=== PATIENT | female | born 1980 | race Caucasian/White ===

== ENCOUNTER → 2016-10-19 | Outpatient (CLI) | payer MEDICARE, OTHER ==
[~2016-10-19] MED LIST: ALPRAZOLAM0.5 MG PO; CRESTOR20 MG PO; GABAPENTIN600 MG PO; PROTONIX40 MG PO; VENTOLIN/PROVE0.5 ML INH; ZANTAC300 MG PO; ZOFRAN4 MG PO
== END ==
LOC: RAD 07:59
DX: K21.9 Gastro-esophageal reflux disease without esophagitis (principal); K44.9 Diaphragmatic hernia without obstruction or gangrene; Z88.6 Allergy status to analgesic agent; Z88.8 Allergy status to other drugs, medicaments and biological substances
CPT/HCPCS: 74220

== ENCOUNTER 2021-03-02 11:52 | Emergency (ER) | payer OTHER ==
[~2021-03-02 11:52] MED LIST changes: +COLACE100 MG PO; +NEURONTIN600 MG PO; +NORCO 5-325 TA1 EACH PO; +NORCO 7.5-3251 EACH PO; +NORETHINDRONE AC5 MG PO; +OMEPRAZOLE20 M1 PO; +PRILOSEC OTC20 MG PO; +XANAX0.25 MG PO; +ZOFRAN8 MG PO
== END 2021-03-02 14:21 | disposition home or self-care (01) ==
LOC: ER1 11:52
DX: S80.01XA Contusion of right knee, initial encounter (principal); E11.9 Type 2 diabetes mellitus without complications; V49.40XA Driver injured in collision with unspecified motor vehicles in traffic accident, initial encounter; Y92.410 Unspecified street and highway as the place of occurrence of the external cause
CPT/HCPCS: 73564; 99283

== ENCOUNTER → 2021-03-15 | Outpatient (CLI) | payer MEDICARE, OTHER | LOC: KOH-I 09:51 | DX: S20.211A Contusion of right front wall of thorax, initial encounter (principal); R07.81 Pleurodynia | CPT/HCPCS: 71046 ==

== ENCOUNTER → 2021-07-19 | Outpatient (CLI) | payer MEDICARE, OTHER | LOC: KOH-I 09:01 | DX: M25.521 Pain in right elbow (principal) | CPT/HCPCS: 73080 ==

== ENCOUNTER → 2021-11-19 | Outpatient (CLI) | payer MEDICARE, OTHER | LOC: CT 11-18 08:00 | DX: M54.50 Low back pain, unspecified (principal); R31.9 Hematuria, unspecified; K76.0 Fatty (change of) liver, not elsewhere classified; N63.10 Unspecified lump in the right breast, unspecified quadrant; M79.604 Pain in right leg; M79.605 Pain in left leg; M79.671 Pain in right foot; M79.672 Pain in left foot; R20.2 Paresthesia of skin; Z98.890 Other specified postprocedural states | CPT/HCPCS: 72100; 73620; 73630 ==